=== PATIENT | female | born 1990 | race Caucasian/White ===

== ENCOUNTER 2017-12-08 14:40 | Emergency (ER) | payer MEDICAID, SELFPAY ==
[2017-12-08 14:41] VITALS: BP 127/72; PULSE 81; RESP 14; TEMP 36.9; O2SAT 98; BMI 26.1
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
[2017-12-08 15:11] VITALS: RESP 18
== END 2017-12-08 15:11 | disposition home or self-care (01) ==
LOC: ED 15:10
PROVIDERS: Emergency Provider Emergency Medicine
DX: S09.22XA Traumatic rupture of left ear drum, initial encounter (principal); Z79.899 Other long term (current) drug therapy; Y04.2XXA Assault by strike against or bumped into by another person, initial encounter; Y93.89 Activity, other specified; Y92.89 Other specified places as the place of occurrence of the external cause; Y99.8 Other external cause status
CPT/HCPCS: 99282

== ENCOUNTER → 2019-02-19 10:12 | Outpatient (CLI) | payer MEDICAID, SELFPAY ==
[2018-01-26 10:07] VITALS: BMI 26.1
[2019-02-23 15:11] LABS: HPV APTIMA, High Risk Negative (Negative); HPV Reflexed? YES, CHARGE PATIENT
== END ==
PROVIDERS: Visit Provider Advanced Practice Midwife
DX: Z12.4 Encounter for screening for malignant neoplasm of cervix (principal)
CPT/HCPCS: 87624; 88175; G0145

== ENCOUNTER → 2019-09-06 16:54 | Outpatient (CLI) | payer MEDICAID, SELFPAY ==
[2018-01-26 10:07] VITALS: BMI 26.1
[2019-09-06 22:11] LABS: Chlamydia Trachomatis by PCR Negative (Negative); Neisserai gonorrhoeae by PCR Negative (Negative); Probe Check PASS; Sample Adequacy Control PASS; Specimen Processing Control PASS
== END ==
PROVIDERS: Visit Provider Obstetrics & Gynecology
DX: Z11.3 Encounter for screening for infections with a predominantly sexual mode of transmission (principal)
CPT/HCPCS: 87491; 87591

== ENCOUNTER → 2020-04-30 15:44 | Outpatient (CLI) | payer MEDICAID, SELFPAY ==
[2018-01-26 10:07] VITALS: BMI 26.1
[2020-05-05 12:30] LABS: HPV APTIMA, High Risk Negative (Negative)
[2020-05-05 12:51] LABS: HPV Reflexed? YES, CHARGE PATIENT
== END ==
PROVIDERS: Visit Provider Obstetrics & Gynecology
DX: Z12.4 Encounter for screening for malignant neoplasm of cervix (principal); Z11.3 Encounter for screening for infections with a predominantly sexual mode of transmission
CPT/HCPCS: 87624; 88175; G0145